=== PATIENT | female | born 2000 | race Caucasian/White ===

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

== ENCOUNTER → 2020-04-25 15:16 | Outpatient (CLI) | payer BC, SELFPAY ==
[2020-04-25 22:04] LABS: Basophils % 0.3 % (0.1-2.0); Hematocrit 34.5 % (37.0-47.0); Hemoglobin 11.7 g/dL (12.2-16.2); Lymphocytes # 0.3 K/mm3 (0.7-4.5); Lymphocytes % 6.1 % (10-50); Mean Corpuscular Hemoglobin 29.1 pg (27.0-31.2); Mean Corpuscular Volume 85.6 fl (81-99); Mean Platelet Volume 10.6 fl (7.4-10.4); Monocytes # 0.3 K/mm3 (0.1-1.0); Monocytes % 6.6 % (1.7-9.3); Neutrophils # 3.8 K/mm3 (1.8-7.8); Platelet Count 86 K/mm3 (142-424); Red Blood Count 4.03 M/mm3 (4.20-5.40); Red Cell Distribution Width 13.5 % (11.5-17.5); White Blood Count 4.4 K/mm3 (4.5-13.0)
[2020-04-25 22:19] LABS: MANUAL DIFFERENTIAL MANUAL DIFFERENTIAL (MANUAL DIFF)
[2020-04-25 22:36] LABS: Lymphocytes % 6 % (10-50); Monocytes % 4 % (2-9); Neutrophils % 90 % (42-76); Platelet Estimate Marked Decrease; RBC Morphology Normal; Total Cells Counted 100
== END ==
PROVIDERS: PCP Family Medicine; Visit Provider Family Medicine
DX: Z03.818 Encounter for observation for suspected exposure to other biological agents ruled out (principal)
CPT/HCPCS: 36415; 85007; 85025; U0003

== ENCOUNTER → 2020-09-12 17:16 | Outpatient (CLI) | payer OTHER, SELFPAY ==
[2020-09-12 17:51] LABS: Basophils # 0.1 K/mm3 (0-0.2); Basophils % 0.8 % (0.1-2.0); Eosinophils # 0.2 K/mm3 (0.0-0.4); Hematocrit 39.1 % (37.0-47.0); Hemoglobin 12.7 g/dL (12.2-16.2); Lymphocytes # 1.8 K/mm3 (0.7-4.5); Lymphocytes % 23.6 % (10-50); Mean Corpuscular HGB Conc 32.6 g/dL (31.8-35.4); Mean Corpuscular Hemoglobin 27.8 pg (27.0-31.2); Mean Corpuscular Volume 85.4 fl (81-99); Mean Platelet Volume 9.5 fl (7.4-10.4); Monocytes # 0.5 K/mm3 (0.1-1.0); Monocytes % 6.6 % (1.7-9.3); Neutrophils # 5.2 K/mm3 (1.8-7.8); Platelet Count 294 K/mm3 (142-424); Red Blood Count 4.59 M/mm3 (4.20-5.40); Red Cell Distribution Width 13.4 % (11.5-17.5); White Blood Count 7.7 K/mm3 (4.8-10.8)
[2020-09-12 19:11] LABS: Strep Scrn Group A (Rapid) Negative (Negative)
== END ==
PROVIDERS: Visit Provider Family Medicine
DX: Z20.822 Contact with and (suspected) exposure to COVID-19 (principal); J02.9 Acute pharyngitis, unspecified
CPT/HCPCS: 36415; 85025; 87430

== ENCOUNTER 2020-10-01 11:08 | Emergency (ER) | payer OTHER, SELFPAY ==
[2020-10-01 11:15] VITALS: BP 118/70; PULSE 89; RESP 19; TEMP 37; O2SAT 100; BMI 25.2
--- NOTE | 2020-10-01 11:39 | HMH.EDUTC ---
[facility] [place] Disposition Clinical Impression: Strep sore throat Disposition: Home, Self-Care Condition on Discharge: Good Instructions: DI for Strep Throat Additional Instructions: Start antibiotics today be sure to take it as ordered with the full length of time although you should start feeling better in 24-48 hours. Change toothbrush and toothpaste 24-48 hours after starting antibiotics Tylenol or Motrin as needed for fever or pain Encourage fluids, water, Gatorade, Powerade, try cold fluids, popsicles, ice cream will make it feel better You are contagious for 24 hours. Avoid kissing anyone, no eating or drinking after anyone. You are contagious. Follow-up the ER for new or worsening symptoms or no noticeable improvement over the next 24-48 hours. Follow-up with PCP this week. Prescriptions: Azithromycin [Zithromax 250mg tab] 250 mg PO DIRECTED #6 tab Transmission Status: Pending to [facility] Referrals: Cory Benjamin MD [Primary Care Provider] - Forms: Work/School Release Time of Disposition: 11:45 Medical Decision Making - Mirza Inquiry Pt receiving controlled substance: No Vital Signs: 10/01/20 11:15 Temperature 98.6 F Temperature Source Oral Pulse Rate [Right Brachial] 89 Respiratory Rate 19 Blood Pressure [Right Arm] 118/70 Blood Pressure Mean [Right Arm] 86 Blood Pressure Source [Right Arm] Automatic Cuff Blood Pressure Position [Right Arm] Sitting 02 Sat by Pulse Oximetry 100 Oxygen Delivery Method Room Air [facility] [place] HPI - General Chief complaint: Urgent [facility] Stated complaint: headache, sore throat Time Seen by Provider: 10/01/20 11:39 Mode of Arrival: Ambulatory Source of Information: Patient Limitations: No Limitations Description of Symptoms (Recalled from Triage Doc. by RN): PATIENT C/O HEADACHE AND SWOLLEN THROAT X 3 DAYS HEENT Symptoms (Recalled from RN notes): Yes Resp Symptoms (Recalled from RN notes): No Skin Symptoms (Recalled from RN notes): No MS Symptoms (Recalled from RN notes): No Functional Status (Recalled from RN notes): WNL - History of Present Illness Provider Complaint: 20 yr old female presents for sore throat and headache for 3 days - Related Data Home Medications Medication Instructions Recorded Confirmed Ethinyl Estradiol/Drospirenone 1 each PO DAILY 10/01/20 10/01/20 [Loryna 3 mg-0.02 mg Tablet] Levocetirizine Dihydrochloride 5 mg PO DAILY 10/01/20 10/01/20 [Xyzal] Previous Rx's Medication Instructions Recorded Azithromycin [Zithromax 250mg 250 mg PO DIRECTED #6 tab 10/01/20 tab] Allergies Allergy/AdvReac Type Severity Reaction Status Date / Time No Known Allergies Allergy Verified 10/01/20 11:34 - Worker's Comp Is this a Worker's Comp case?: No [facility] History - Hepatitis A Screen Drug use history?: No High risk sexual behaviors?: No History of sexually transmitted infection?: No Currently employed?: No Childcare worker?: No Do you have indoor plumbing?: Yes Do you have electricity?: Yes Attestation statement:: This patient has been screened for Hepatitis A risk factors. I have reviewed the patient's past medical history: Yes - Social History Alcohol Intake: never Occupational Status: other ROS Obtained: Yes Systems reviewed as appropriate & no additional complaints - Constitutional Constitutional: Reports system reviewed and no additional complaints, except as docu, Denies frequent falls, Reports headache(s) - Eyes Eyes: Reports system reviewed and no additional complaints, except as docu - ENT Ears, Nose, Mouth, and Throat: Reports system reviewed and no additional complaints, except as docu, Reports headache(s), Reports sore throat - Cardiovascular Cardiovascular: Reports system reviewed and no additional complaints, except as docu, Denies chest pain - Respiratory Respiratory: Reports system reviewed and no additional complaints, except as docu, Denies change in phleg
[2020-10-01 11:45] VITALS: BP 118/70; PULSE 89; RESP 19; TEMP 37; O2SAT 100
[2020-10-01 11:47] LABS: UTC Strep Screen (Rapid) Positive (Negative)
== END 2020-10-01 11:50 | disposition home or self-care (01) ==
PROVIDERS: Emergency Provider Nurse Practitioner Family; PCP Family Medicine
DX: J02.0 Streptococcal pharyngitis (principal)
CPT/HCPCS: 87880; 99202; G0463

== ENCOUNTER 2021-01-19 09:00 | Emergency (ER) | payer OTHER, SELFPAY ==
[2021-01-19 09:00] VITALS: BP 121/79; PULSE 73; RESP 18; TEMP 36.6; O2SAT 98; BMI 24.1
--- NOTE | 2021-01-19 09:41 | HMH.EDUTC ---
[facility] [place] Impression: Strep throat Disposition: Home, Self-Care Condition on Discharge: Good Instructions: Strep Throat, DI for Strep Throat Additional Instructions: Drink plenty of fluids. Take tylenol or ibuprofen for pain or fever. Take the medications as directed. Follow up with your regular doctor. GO TO THE ER FOR ANY WORSENING SYMPTOMS Throw your tooth brush away and get a new one. Prescriptions: Ondansetron [Zofran 4mg ODT] 4 mg PO Q8HP PRN #12 tab.rapdis PRN Reason: Nausea Transmission Status: Received by [facility] Amoxicillin [Amoxicillin 500mg Tab] 500 mg PO TID 10 Days #30 tab Transmission Status: Received by [facility] predniSONE [Deltasone 10mg tablet] 10 mg PO BID 3 Days #6 tab Transmission Status: Received by [facility] Referrals: Cory Benjamin MD [Primary Care Provider] - Forms: Work/School Release Time of Disposition: 09:44 Medical Decision Making - Medical Records Medical records reviewed: No: I reviewed the patient's medical records. - Mirza Inquiry Pt receiving controlled substance: No Vital Signs: 01/19/21 09:00 01/19/21 09:47 Temperature 97.8 F 97.8 F Temperature Source Oral Pulse Rate 73 Pulse Rate [Left Brachial] 73 Respiratory Rate 18 18 Blood Pressure 121/79 Blood Pressure [Left Arm] 121/79 Blood Pressure Mean [Left Arm] 93 Blood Pressure Source [Left Arm] Automatic Cuff Blood Pressure Position [Left Arm] Sitting 02 Sat by Pulse Oximetry 98 Oxygen Delivery Method Room Air - Lab Data Lab results reviewed: Yes: I reviewed the patient's lab results. Lab Results 01/19/21 09:21: Strep Scn [facility] Positive A [facility] [place] - General Stated complaint: stiff neck, h/a, sore throat Time Seen by Provider: 01/19/21 09:15 Mode of Arrival: Ambulatory Source of Information: Patient Limitations: No Limitations Description of Symptoms (Recalled from Triage Doc. by RN): PATIENT C/O SORE THROAT X 1 WEEK AND STIFF NECK/HEADACHE SINCE THIS AM HEENT Symptoms (Recalled from RN notes): Yes Resp Symptoms (Recalled from RN notes): No Skin Symptoms (Recalled from RN notes): No MS Symptoms (Recalled from RN notes): No Functional Status (Recalled from RN notes): WNL - History of Present Illness Provider Complaint: She c/o sore throat for the past 4 days. She has been running a low grade fever and chilling also. - Related Data Home Medications Medication Instructions Recorded Confirmed Ethinyl Estradiol/Drospirenone 1 each PO DAILY 10/01/20 10/01/20 [Loryna 3 mg-0.02 mg Tablet] Levocetirizine Dihydrochloride 5 mg PO DAILY 10/01/20 10/01/20 [Xyzal] Previous Rx's Medication Instructions Recorded Azithromycin [Zithromax 250mg 250 mg PO DIRECTED #6 tab 10/01/20 tab] Amoxicillin [Amoxicillin 500mg Tab] 500 mg PO TID 10 Days #30 tab 01/19/21 Ondansetron [Zofran 4mg ODT] 4 mg PO Q8HP PRN #12 tab.rapdis 01/19/21 predniSONE [Deltasone 10mg tablet] 10 mg PO BID 3 Days #6 tab 01/19/21 Allergies Allergy/AdvReac Type Severity Reaction Status Date / Time No Known Allergies Allergy Verified 10/01/20 11:34 - Worker's Comp Is this a Worker's Comp case?: No [facility] History - Hepatitis A Screen Drug use history?: No High risk sexual behaviors?: No History of sexually transmitted infection?: No Currently employed?: No Childcare worker?: No Do you have indoor plumbing?: Yes Do you have electricity?: Yes Attestation statement:: This patient has been screened for Hepatitis A risk factors. I have reviewed the patient's past medical history: Yes - Social History Alcohol Intake: never Occupational Status: other ROS Obtained: Yes All systems reviewed & no additional complaints - Constitutional Constitutional: Reports as per HPI - Eyes Eyes: Denies eye discharge - ENT Ears, Nose, Mouth, and Throat: Reports as per HPI - Cardiovascular Cardiovascular:
[2021-01-19 09:47] VITALS: BP 121/79; PULSE 73; RESP 18; TEMP 36.6; O2SAT 98
[2021-01-19 10:07] LABS: UTC Strep Screen (Rapid) Positive (Negative)
== END 2021-01-19 09:51 | disposition home or self-care (01) ==
PROVIDERS: Emergency Provider Nurse Practitioner Family; PCP Family Medicine
DX: J02.0 Streptococcal pharyngitis (principal)
CPT/HCPCS: 87880; 99202; G0463

== ENCOUNTER 2021-03-11 11:03 | Emergency (ER) | payer OTHER, SELFPAY ==
[2021-03-11 12:15] VITALS: BP 124/88; PULSE 98; RESP 20; TEMP 37.8; O2SAT 100; BMI 24.1
--- NOTE | 2021-03-11 12:44 | HMH.EDUTC ---
[facility] [place] Impression: Exposure to COVID-19 virus Disposition: Home, Self-Care Condition on Discharge: Good Instructions: Preventing the Spread of Coronavirus Discharge Instructions Additional Instructions: You have been tested for COVID19. Please isolate yourself as if you are positive until results are received I will send Zofran for nausea/vomiting Vitamin B,C,D, zinc may help with symptoms. Baby aspirin, Mucinex twice day, Pepcid twice a day, [place]-3s may help. Walk outside, get fresh air and sunshine, take deep breaths, sleep on belly Return to [facility] if difficulty breathing, chest pain, etc Prescriptions: ondansetron HCL [Ondansetron 8mg tab*] 8 mg PO TIDP PRN 10 Days #30 tab PRN Reason: nausea/vomiting Transmission Status: Pending to [id number] Referrals: Cory Benjamin MD [Primary Care Provider] - Time of Disposition: 12:51 Medical Decision Making - Mirza Inquiry Pt receiving controlled substance: No Vital Signs: 03/11/21 12:15 Temperature 100.0 F H Temperature Source Oral Pulse Rate [Right Brachial] 98 H Respiratory Rate 20 Blood Pressure [Right Arm] 124/88 Blood Pressure Mean [Right Arm] 100 Blood Pressure Source [Right Arm] Automatic Cuff Blood Pressure Position [Right Arm] Sitting 02 Sat by Pulse Oximetry 100 Oxygen Delivery Method Room Air Orders (Tests/Meds): ORDERS Category Date Time Status Covid-19 Nasal PCR ([facility]) Routine Lab 03/11/21 12:16 [place] [facility] [place] - General Stated complaint: covid test/exposure and symptoms Time Seen by Provider: 03/11/21 12:44 Mode of Arrival: Ambulatory Source of Information: Patient Limitations: No Limitations Description of Symptoms (Recalled from Triage Doc. by RN): COVID TEST D/T EXPOSURE. C/O RUNNY NOSE, VOMITING, HEADACHE, AND SORE THROAT SINCE SATURDAY HEENT Symptoms (Recalled from RN notes): Yes Resp Symptoms (Recalled from RN notes): Yes Skin Symptoms (Recalled from RN notes): No MS Symptoms (Recalled from RN notes): No Functional Status (Recalled from RN notes): WNL - History of Present Illness Provider Complaint: Headache, runny nose, cough, sore throat, vomiting X 6 days. Mother has COVID19. Onset (ago): day(s) (6) Location: chest Relieving factors: none Exacerbating factors: none Associated symptoms: cough, fever/chills, malaise, nausea/vomiting Treatments prior to arrival: NSAID - Related Data Home Medications Medication Instructions Recorded Confirmed Ethinyl Estradiol/Drospirenone 1 each PO DAILY 10/01/20 10/01/20 [Loryna 3 mg-0.02 mg Tablet] Levocetirizine Dihydrochloride 5 mg PO DAILY 10/01/20 10/01/20 [Xyzal] Previous Rx's Medication Instructions Recorded Azithromycin [Zithromax 250mg 250 mg PO DIRECTED #6 tab 10/01/20 tab] Amoxicillin [Amoxicillin 500mg Tab] 500 mg PO TID 10 Days #30 tab 01/19/21 Ondansetron [Zofran 4mg ODT] 4 mg PO Q8HP PRN #12 tab.rapdis 01/19/21 predniSONE [Deltasone 10mg tablet] 10 mg PO BID 3 Days #6 tab 01/19/21 ondansetron HCL [Ondansetron 8mg 8 mg PO TIDP PRN 10 Days #30 tab 03/11/21 tab*] Allergies Allergy/AdvReac Type Severity Reaction Status Date / Time No Known Allergies Allergy Verified 10/01/20 11:34 - Worker's Comp Is this a Worker's Comp case?: No [facility] History - Hepatitis A Screen Drug use history?: No High risk sexual behaviors?: No History of sexually transmitted infection?: No Currently employed?: No Childcare worker?: No Do you have indoor plumbing?: Yes Do you have electricity?: Yes Attestation statement:: This patient has been screened for Hepatitis A risk factors. I have reviewed the patient's past medical history: Yes - Social History Alcohol Intake: never Occupational Status: other ROS Obtained: Yes All systems reviewed & no additional complaints - Constitutional Constitutional: Reports body ache, Reports chills, Reports fever(s), Reports headache(s), Reports malaise - ENT Ears
[2021-03-11 12:53] VITALS: BP 124/88; PULSE 98; RESP 20; TEMP 37.8; O2SAT 100
--- NOTE | 2021-03-12 10:51 | PC.NURSE ---
informed patient that she is positive
== END 2021-03-11 12:59 | disposition home or self-care (01) ==
PROVIDERS: Emergency Provider Physician Assistant; PCP Family Medicine
DX: Z20.822 Contact with and (suspected) exposure to COVID-19 (principal); R51.9 Headache, unspecified; R11.10 Vomiting, unspecified; J02.9 Acute pharyngitis, unspecified
CPT/HCPCS: 99202; C9803; G0463; U0003; U0005

== ENCOUNTER → 2021-05-23 11:14 | Outpatient (CLI) | payer OTHER, SELFPAY | PROVIDERS: PCP Internal Medicine; Visit Provider Internal Medicine | DX: Z20.822 Contact with and (suspected) exposure to COVID-19 (principal) | CPT/HCPCS: 87275; 87276; C9803; U0003; U0005 ==

== ENCOUNTER → 2021-07-05 15:08 | Outpatient (CLI) | payer OTHER, SELFPAY ==
[2021-07-05 16:48] LABS: Strep Scrn Group A (Rapid) Negative (Negative)
== END ==
PROVIDERS: PCP Internal Medicine; Visit Provider Internal Medicine
DX: U07.1 COVID-19 (principal); J02.9 Acute pharyngitis, unspecified
CPT/HCPCS: 87430; C9803; U0003; U0005

== ENCOUNTER → 2021-10-02 11:53 | Outpatient (CLI) | payer OTHER, SELFPAY ==
[2021-10-02 12:45] LABS: Urine Pregnancy, HCG Qual. Negative (Negative)
== END ==
PROVIDERS: PCP Internal Medicine; Visit Provider Student in an Organized Health Care Education/Training Program
DX: Z01.812 Encounter for preprocedural laboratory examination (principal); Z11.52 Encounter for screening for COVID-19; J02.0 Streptococcal pharyngitis; J35.8 Other chronic diseases of tonsils and adenoids
CPT/HCPCS: 81025; C9803; U0003; U0005

== ENCOUNTER 2021-10-04 06:55 | Day surgery (SDC) | payer OTHER, SELFPAY ==
[2021-09-26 13:35] VITALS: BMI 23.6
[2021-10-04] VITALS (11 sets, daily range): BP systolic 121–143; BP diastolic 63–94; PULSE 68–90; RESP 12–18; TEMP 36.1–37.3; O2SAT 97–100
--- NOTE | 2021-10-04 07:40 | P.PN_ITS ---
[facility] Anesthesia Checklist - Structural Data Admitted From: Home Planned Operative Procedure/s: tonsillectomy Consent for Planned Operative Procedure(s) Verified: Yes - Additional verifications Anesthesia Reactions: No Hx Blood Transfusions: No Blood Transfusion Reaction: No - Airway Assessment C-Spine Mobility Assessed: Yes TMJ Mobility Assessed: Yes Dentition: Good Dentition - Neurological Assessment Level of Consciousness: Awake, Alert, Appropriate - Anesthesia Plan Anesthesia Risk discussed: Yes Anesthesia Plan: Verified ASA Class: I Anesthesia Type: General [facility] History I have reviewed the patient's past medical history: Yes Medical History: Denies:: Cancer, Diabetes Mellitus Type 1, Diabetes Mellitus Type 2, MRSA, Seizures *Have you ever received a pneumonia vaccine?: No *Have you received a flu vaccine this season?: No Other Medical History: Denies: Blood Transfusion Reaction Anesthesia experience/problems:: none Other Surgeries: Yes: No Previous Surgery Amputation: No - *Social History Last grade of school completed: High school graduate Smoking Status: Never smoker Alcohol Intake: never Substance Use Type: denies use *Occupational Status:: employed Housing: house *Travel in the last 8 weeks: None Family Hx:: Cancer
--- NOTE | 2021-10-04 08:56 | P.OP_ITS ---
Date of procedure: 10/04/21 Pre-op Diagnosis:: chornic tonsillitis Post-op Diagnosis:: same Procedure performed:: tonsillectomy and adenoidectomy Surgeon:: Diego Metzger MD UNATTENDED GROUND SENSOR SPECIALIST:: Abraham Rojas Anesthesia: GETA Estimated blood loss (mL): 5 Operative findings:: 3+ cryptic tonsils 1+ adenoids Operative note:: The patient was brought to the OR and laid in supine position. General anesthesia was induced. The patient was prepped and draped in the usual fashion. Their mouth was suspended with a Doris-Carlos mouth gag. Examination of the palate revealed no palatal clefts. The palate was elevated with a red rubber catheter. Mirror examination revealed _1+__ adenoid hypertrophy. Adenoids were taken down with the microdebrider and then hemostasis was achieved with suction cautery. I then turned my attention towards the tonsils. The patient had _3_+ cryptic tonsils bilaterally. First the right tonsil, and then the left tonsil were excised with Bovie cautery. Hemostasis was then achieved with suction cautery. The patient's nose and mouth were then thoroughly irrigated and suctioned out. Marcaine-soaked tonsil balls were placed in the tonsillar fossae for local anesthetic. These were then removed. Her stomach was suctioned with an OG tube. All counts were confirmed correct. She was then turned back over to anesthesia to be awoken and extubated. Condition: stable Disposition: PACU Complications:: none
--- NOTE | 2021-10-04 09:02 | P.PN_ITS ---
[facility] Anesthesia Record Part I Intake, IV Amount: 800 Estimated blood loss (mL): 5 Urine output (mL): 0 Blood Pressure: 132/91 SaO2: 97 Pulse Rate: 79 Respiratory Rate: 13 Temperature: 97 F Patient is:: Drowsy, Oral/Nasal airway Stable to PACU at:: 09:01
--- NOTE | 2021-10-04 09:14 | SUR.PHASEI ---
0901 - pt arrived to PACU w/ oral airway, airway patent [id number] - pt more awake, opening eyes and following commands, oral airway removed. airway remains patent, SPO2 99% on room air.
--- NOTE | 2021-10-04 11:46 | HMH.ANESII ---
[facility] Anesthesia Record Part II Discharge Time: 09:31 Destination: Surgical Day Care (OP Surgery) PACU nurse assessment reviewed?: Yes Patient Condition:: Good Anesthesia Complications:: None Swallowing reflex intact?: Yes Cyanosis?: No Blood Pressure: 143/63 Pulse Rate: 79 Temperature: 98.2 F Mental Status: Alert & Oriented Pain level:: 5 Nausea and/or vomitting:: None Intake, IV Amount: 0
== END 2021-10-04 10:16 | disposition home or self-care (01) ==
LOC: OR 06:56
PROVIDERS: PCP Internal Medicine; Visit Provider Student in an Organized Health Care Education/Training Program
PROC: (CPT 42821; principal; 2021-10-04 08:00)
DX: J35.8 Other chronic diseases of tonsils and adenoids (principal)
CPT/HCPCS: 42821; J2405

== ENCOUNTER 2021-10-09 11:57 | Emergency (ER) | payer OTHER, SELFPAY ==
[2021-10-09 11:58] VITALS: BP 108/67; PULSE 73; RESP 16; TEMP 36.8; O2SAT 98; BMI 22.1
--- NOTE | 2021-10-09 12:03 | PC.NURSE ---
CARLITOS Mccabe at
--- NOTE | 2021-10-09 12:36 | PC.NURSE ---
patient drinking a sprite that was okay'd by
[2021-10-09 12:41] VITALS: BP 98/62; PULSE 87; O2SAT 95
--- NOTE | 2021-10-09 12:43 | HMH.EDGENADL ---
ED Disposition Clinical Impression: Migraine Qualifiers: Migraine type: unspecified Status migrainosus presence: without status migrainosus Intractability: not intractable Qualified Code(s): G43.909 - Migraine, unspecified, not intractable, without status migrainosus Disposition: Home, Self-Care Condition on Discharge: Good Additional Instructions: Please switch to ibuprofen and Tylenol every 6 hours for pain control. You may give 500 mg of Tylenol and 400 mg of ibuprofen in combination to control pain and inflammation. If your condition worsens or any other concerns arise please return to the emergency department for reassessment. Otherwise, please follow-up with your ENT doctor and primary care doctor. Referrals: Oumar Fernandez [Primary Care Provider] - - Critical Care Critical Care Time: No Attestation: On 10/09/21, the high probability of a clinically significant, sudden or life threatening deterioration of the following system(s) required my full and direct attention, intervention and personal management. The time I documented below is in addition to time spent performing reported procedures but includes the following listed in this critical care notation. Medical Decision Making - Medical Records Medical records reviewed: Yes: I reviewed the patient's medical records. - Mirza Inquiry Pt receiving controlled substance: No Vital Signs: 10/09/21 11:58 10/09/21 12:41 10/09/21 13:50 Temperature 98.2 F Temperature Source Oral Pulse Rate 87 58 L Pulse Rate [Radial] 73 Respiratory Rate 16 Blood Pressure 98/62 L 120/66 Blood Pressure [Right Arm] 108/67 L Blood Pressure Mean [Right Arm] 80 Blood Pressure Source Automatic Cuff Blood Pressure Position Sitting Blood Pressure Position [Right Arm] Sitting 02 Sat by Pulse Oximetry 98 95 97 Oxygen Delivery Method Room Air Room Air Room Air 10/09/21 14:20 Temperature Temperature Source Pulse Rate 72 Pulse Rate [Radial] Respiratory Rate Blood Pressure 120/81 Blood Pressure [Right Arm] Blood Pressure Mean [Right Arm] Blood Pressure Source Automatic Cuff Blood Pressure Position Sitting Blood Pressure Position [Right Arm] 02 Sat by Pulse Oximetry 99 Oxygen Delivery Method Room Air - Lab Data Lab results reviewed: Yes: I reviewed the patient's lab results. Lab Results 10/09/21 12:10: SARS-CoV-2 (PCR) Not detected, Influenza A Untype (PCR) Not detected, Influenza Type B (PCR) Not detected 10/09/21 12:30: WBC 8.0, RBC 4.74, Hgb 13.6, Hct 41.9, MCV 88.4, MCH 28.6, MCHC 32.4, RDW 12.5, Plt Count 315, MPV 8.0, Neut % (Auto) 70.3, Lymph % (Auto) 20.8, Fannin % (Auto) 6.7, Eos % (Auto) 1.8, Baso % (Auto) 0.4, Neut # (Auto) 5.6, Lymph # (Auto) 1.7, Fannin # (Auto) 0.5, Eos # (Auto) 0.2, Baso # (Auto) 0.0 10/09/21 12:30: Sodium 138, Potassium 3.9, Chloride 102, Carbon Dioxide 33 H, Anion Gap 6.9, BUN 5 L, Creatinine 0.80, Estimated Creat Clear 115, Estimated GFR 90, Est GFR ( Amer) 109, Glucose 100, Calcium 9.6, Total Bilirubin 0.3, AST 20, ALT 16, Alkaline Phosphatase 66, Total Protein 6.8, Albumin 4.0, Globulin 2.8, Albumin/Globulin Ratio 1.4 Result diagrams: 10/09/21 12:30 10/09/21 12:30 Orders (Tests/Meds): ED MEDICATIONS Discontinued Medications Generic Name Dose Route Start Last Admin Trade Name Souravq PRN Reason Stop Dose Admin Diphenhydramine HCl 25 mg 10/09/21 13:39 10/09/21 13:41 Diphenhydramine 50mg/Ml Vial IV 10/09/21 13:40 25 mg ONCE ONE Administration Lactated Ringer's 1,000 mls @ 999 mls/hr 10/09/21 12:30 10/09/21 12:51 Lactated Ringer's 1000 Ml Bag IV 10/09/21 13:30 999 mls/hr .Q1H1M POLLY Administration Ketorolac Tromethamine 15 mg 10/09/21 13:05 10/09/21 13:20 Ketorolac 30mg/Ml Vial IV 10/09/21 13:06 15 mg ONCE ONE Administration Ondansetron HCl 4 mg 10/09/21 12:24 10/09/21 12:51 Ondansetron 4mg/2ml Vial IV 10/09/21 12:25 4 mg ONCE ONE Administration Prochlorperaz
--- NOTE | 2021-10-09 12:50 | PC.NURSE ---
ED MD at
[2021-10-09 13:02] LABS: Chloride 102 mmol/L (98-107); Potassium 3.9 mmoL/L (3.5-5.1); Sodium 138 mmol/L (136-145)
[2021-10-09 13:03] LABS: Basophils % 0.4 % (0.1-2.0); Eosinophils # 0.2 K/mm3 (0.0-0.4); Eosinophils % 1.8 % (0.1-12.0); Hematocrit 41.9 % (37.0-47.0); Hemoglobin 13.6 g/dL (12.2-16.2); Lymphocytes # 1.7 K/mm3 (0.7-4.5); Lymphocytes % 20.8 % (10-50); Mean Corpuscular HGB Conc 32.4 g/dL (31.8-35.4); Mean Corpuscular Hemoglobin 28.6 pg (27.0-31.2); Mean Corpuscular Volume 88.4 fl (81-99); Monocytes # 0.5 K/mm3 (0.1-1.0); Monocytes % 6.7 % (1.7-9.3); Neutrophils # 5.6 K/mm3 (1.8-7.8); Neutrophils % 70.3 % (37.0-80.0); Platelet Count 315 K/mm3 (142-424); Red Blood Count 4.74 M/mm3 (4.20-5.40); Red Cell Distribution Width 12.5 % (11.5-17.5)
[2021-10-09 13:05] LABS: Alanine Aminotransferase 16 U/L (12-78); Albumin/Globulin Ratio 1.4 (1.1-1.8); Alkaline Phosphatase 66 U/L (38-126); Anion Gap 6.9 mEq/L (5-15); Aspartate Amino Transferase 20 U/L (14-36); Bilirubin,Total 0.3 mg/dl (0.2-1.3); Blood Urea Nitrogen 5 mg/dl (7-17); Calcium 9.6 mg/dl (8.4-10.2); Carbon Dioxide 33 mmol/L (22.0-30.0); Creatinine Clearance Estimated 115 mL/min (50-200); Estimated Glomerular Filt Rate 90 ml/min (>60); GFR (African American) 109 ML/MIN (>60); Globulin 2.8 g/dL (1.3-3.2); Glucose 100 mg/dl (74-100); Total Protein,Serum 6.8 g/dl (6.3-8.2)
--- NOTE | 2021-10-09 13:36 | PC.NURSE ---
Mom came out and advised pt was feeling dizzy. Went in and mom advised pt was feeling dizzy and weird. Pt had been medicated with compazine and toradol. Explained to mother side effects of the medicine and that this could be a normal side effect of the medication. Pt v/s were stable at this time time and there was no swelling of the tongue or spots/redness on the skin. Offered blanket and other things to patient and mother, attempted to help calm patient down. Pt began to relax a little bit and was medicated per MAR
--- NOTE | 2021-10-09 13:40 | PC.NURSE ---
CARLITOS Mccabe at
[2021-10-09 13:46] LABS: Coronavirus 19, PCR Not Detected (NotDetected); Influenza A, PCR Not Detected (NotDetected); Influenza B, PCR Not Detected (NotDetected)
[2021-10-09 13:50] VITALS: BP 120/66; PULSE 58; O2SAT 97
--- NOTE | 2021-10-09 14:01 | PC.NURSE ---
patient is ambulatory to restroom with assistance from Yasmany Ticker Maintainer
[2021-10-09 14:20] VITALS: BP 120/81; PULSE 72; O2SAT 99
--- NOTE | 2021-10-09 14:58 | PC.NURSE ---
Pt up to restroom. No new needs at this time. Advises she is feeling better
--- NOTE | 2021-10-09 15:26 | PC.NURSE ---
PT FEELING IMPROVED. FAMILY AT BEDSIDE
--- NOTE | 2021-10-09 15:32 | PC.NURSE ---
per lab covid swab should be resulted in about 15 minutes
[2021-10-09 16:20] VITALS: BP 114/75; PULSE 70; RESP 18; TEMP 36.8; O2SAT 98
== END 2021-10-09 16:20 | disposition home or self-care (01) ==
PROVIDERS: Emergency Provider Emergency Medicine; PCP Internal Medicine
DX: G43.909 Migraine, unspecified, not intractable, without status migrainosus (principal)
CPT/HCPCS: 80053; 85025; 96374; 96375; C9803; J2405; U0003; U0005

== ENCOUNTER 2022-02-03 10:17 | Emergency (ER) | payer OTHER, SELFPAY ==
[2022-02-03 11:00] VITALS: BP 131/74; PULSE 76; RESP 18; TEMP 36.7; O2SAT 97; BMI 24.1
--- NOTE | 2022-02-03 11:18 | HMH.EDUTC ---
[facility] [place] Clinical Impression: Upper respiratory infection, viral Disposition: Home, Self-Care Condition on Discharge: Good Instructions: DI for Viral Upper Respiratory Infection -- Adult Additional Instructions: No sign of a bacterial infection. Likely viral. Viruses can take 7-14 days to run their course. Nasal saline and bulb syringe or nose Antonia to remove nasal drainage to help with nasal congestion. Hard to eat, drink, sleep with nasal congestion so important to keep this cleaned out. Monitor temp. Tylenol or Motrin as needed for pain or fever Encourage fluids, water, Gatorade, Powerade, Pedialyte if /toddler/child Warm salt water gargles Warm fluids Sore throat lozenges Sleep elevated Humidifier/vaporizer Follow-up immediately for new or worsening symptoms or no noticeable improvement over the next 48-72 hours. Prescriptions: Brompheniramine/Pseudoephed/Dm [Bromfed Dm Cough Syrup] 5 ml PO Q4-6H PRN 5 Days #100 ml PRN Reason: Cough Transmission Status: Pending to [id number] Referrals: Oumar Fernandez MD [Primary Care Provider] - Time of Disposition: 11:30 Medical Decision Making - Mirza Inquiry Pt receiving controlled substance: No Vital Signs: 02/03/22 11:00 Temperature 98.1 F Temperature Source Oral Pulse Rate [Right Brachial] 76 Respiratory Rate 18 Blood Pressure [Right Arm] 131/74 Blood Pressure Mean [Right Arm] 93 Blood Pressure Source [Right Arm] Automatic Cuff Blood Pressure Position [Right Arm] Sitting 02 Sat by Pulse Oximetry 97 Oxygen Delivery Method Room Air [facility] [place] HPI - General Chief complaint: Urgent Treatment Center Stated complaint: Congestion, headache, sinus pain Time Seen by Provider: 02/03/22 11:18 Mode of Arrival: Ambulatory Source of Information: Patient Limitations: No Limitations Description of Symptoms (Recalled from Triage Doc. by RN): PATIENT C/O HEADACHE, RUNNY NOSE, AND SINUS CONGESTION/PRESSURE X 2 WEEKS HEENT Symptoms (Recalled from RN notes): Yes Resp Symptoms (Recalled from RN notes): No Skin Symptoms (Recalled from RN notes): No MS Symptoms (Recalled from RN notes): No Functional Status (Recalled from RN notes): WNL - History of Present Illness Provider Complaint: 21 yr old female presents for clear nasal congestion,sore throat,blakely,sinus pressure and sinus pain for 2 weeks - Related Data Previous Rx's Medication Instructions Recorded Hydrocodone/Acetaminophen 15 ml PO Q6 PRN 7 Days #420 ml 10/04/21 [Hydrocodon-Acetamin 7.5-325/15] ondansetron HCL [Ondansetron 4mg 4 mg PO TIDP PRN #10 tab 10/04/21 tab*] prednisoLONE [Prednisolone] 15 mg PO DAILY 3 Days #15 ml 10/04/21 Brompheniramine/Pseudoephed/Dm 5 ml PO Q4-6H PRN 5 Days #100 ml 02/03/22 [Bromfed Dm Cough Syrup] Allergies Allergy/AdvReac Type Severity Reaction Status Date / Time No Known Allergies Allergy Verified 11/01/21 15:50 - Worker's Comp Is this a Worker's Comp case?: No [facility] History - Hepatitis A Screen Attestation statement:: This patient has been screened for Hepatitis A risk factors. I have reviewed the patient's past medical history: Yes Medical History: Denies:: Cancer, Diabetes Mellitus Type 1, Diabetes Mellitus Type 2, MRSA, Seizures Other Medical History: Denies: Blood Transfusion Reaction Other Surgeries: Yes: No Previous Surgery Amputation: No - Social History Smoking Status: Never smoker Alcohol Intake: never Substance Use Type: denies use Occupational Status: employed Housing: house Family Hx:: Cancer ROS Obtained: Yes Systems reviewed as appropriate & no additional complaints - Constitutional Constitutional: Reports system reviewed and no additional complaints, except as docu, Denies fever(s) - Eyes Eyes: Reports system reviewed and no additional complaints, except as docu, Denies dry eyes - ENT Ears, Nose, Mouth, and Throat: Reports system reviewed and no additional complaints, except as docu, Reports nasal c
[2022-02-03 11:35] LABS: UTC Strep Screen (Rapid) Negative (Negative)
[2022-02-03 11:36] VITALS: BP 131/74; PULSE 76; RESP 18; TEMP 36.7; O2SAT 97
== END 2022-02-03 11:37 | disposition home or self-care (01) ==
PROVIDERS: Emergency Provider Nurse Practitioner Family; PCP Internal Medicine
DX: J06.9 Acute upper respiratory infection, unspecified
CPT/HCPCS: 87880; 99212; G0463

== ENCOUNTER 2023-10-17 16:05 | Outpatient (CLI) | payer OTHER, SELFPAY ==
--- NOTE | 2023-10-17 16:09 | MR_ITS ---
FINAL REPORT TECHNIQUE: Multiplanar MR without contrast CLINICAL HISTORY: LOW BACK PAIN with left leg pain FINDINGS: Sagittal images show normal vertebral height. Alignment is normal. Marrow signal pattern is unremarkable. L1-2: Unremarkable L2-3: Unremarkable L3-4: Unremarkable L4-5: Unremarkable L5-S1: There is a moderate size left paracentral disc protrusion causing compression of the left S1 nerve root. IMPRESSION: Moderate size left paracentral disc protrusion at L5-S1 causing compression of the left S1 nerve root. Reviewed, Interpreted and Dictated by Fanny Morel MD Transcribed by Komal French Authenticated and . [facility]
== END 2023-10-17 23:59 | disposition home or self-care (01) ==
LOC: RAD 16:05
PROVIDERS: PCP Nurse Practitioner Family; Visit Provider Nurse Practitioner Family
DX: M54.50 Low back pain, unspecified (principal)
CPT/HCPCS: 72148; 76376